=== PATIENT | female | born 1960 | race Caucasian/White ===

== ENCOUNTER 2021-08-25 14:15 | Emergency (ER) | payer OTHER, SELFPAY ==
--- NOTE | ~2021-08-25 | XR_ITS ---
EXAMINATION: XR chest 2V 08/25/2021 15:30 INDICATION: Cough with wheezing PROCEDURE: 2 view chest COMPARISON: No prior studies for comparison. FINDINGS: The lungs are clear. The cardiomediastinal silhouette is within normal limits. There are no pleural effusions. There is no pneumothorax suspected. IMPRESSION: 1: NO ACUTE CARDIOPULMONARY DISEASE. Reviewed, dictated and finalized at location A. L
[2021-08-25 14:29] VITALS: BP 128/66; PULSE 97; RESP 20; TEMP 36.9; O2SAT 100
--- NOTE | 2021-08-25 15:25 | ED.URI ---
HPI - URI/Sore Throat General Chief Complaint: Upper Respiratory Infection Stated Complaint: Fever/Cough/Chest Congestion Time Seen by Provider: 08/25/21 15:16 Source: patient and RN notes reviewed Mode of arrival: ambulatory Limitations: no limitations History of Present Illness HPI Narrative: Patient presents today with a 3-day history of cough, congestion, rhinorrhea, temperature up to 99.1. Denies shortness of breath, nausea, vomiting, diarrhea, or any additional symptoms. She has been taking Mucinex without relief. Denies history of asthma or COPD. MD elicited complaint: cough Related Data Home Medications Medication Instructions Recorded Confirmed allopurinol 100 mg PO DAILY 08/25/21 08/25/21 amlodipine 5 mg PO DAILY 08/25/21 08/25/21 cyclobenzaprine 10 mg PO TID PRN 08/25/21 08/25/21 duloxetine 60 mg PO DAILY 08/25/21 08/25/21 famotidine 20 mg PO BID 08/25/21 08/25/21 metformin 500 mg PO DAILY 08/25/21 08/25/21 montelukast 10 mg PO DAILY 08/25/21 08/25/21 rosuvastatin 20 mg PO DAILY 08/25/21 08/25/21 tramadol 50 mg PO Q4H PRN 08/25/21 08/25/21 Allergies Allergy/AdvReac Type Severity Reaction Status Date / Time Sulfa (Sulfonamide Allergy Nausea and Verified 08/25/21 14:39 Antibiotics) Vomiting tetracycline Allergy Nausea Verified 08/25/21 14:39 amoxicillin [From Augmentin] AdvReac Nausea Verified 08/25/21 14:39 clavulanic acid AdvReac Nausea Verified 08/25/21 14:39 [From Augmentin] doxycycline AdvReac Nausea Verified 08/25/21 14:39 erythromycin base AdvReac Nausea Verified 08/25/21 14:46 Review of Systems Review of Systems: CONSTITUTIONAL: Denies body aches, chills, or sweats.+ Fever EYES: Denies visual changes, redness, or discharge. ENT: Denies sore throat, or otalgia. + Congestion, rhinorrhea CARDIOVASCULAR: Denies chest pain, palpitations, or edema. RESPIRATORY: Denies dyspnea. + Cough GASTROINTESTINAL: Denies abdominal pain, nausea, vomiting, or diarrhea. GENITOURINARY: Denies dysuria or hematuria. SKIN: Denies rash, itching, or wounds. MUSCULOSKELETAL: Denies back pain, joint pain, or myalgia. NEUROLOGIC: Denies headache, numbness, tingling, or weakness. PSYCH: Denies depression or anxiety. 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 Please see nursing chart for further information. There is no relevant family history pertinent to the presenting complaint Exam Narrative: GENERAL: Well-appearing, well-nourished, and in no acute distress. HEAD: Normocephalic, atraumatic. EYES: EOMI. No redness or drainage. Conjunctivae normal. ENT: Mucous membranes pink and moist. Nares clear. No rhinorrhea. TMs normal bilaterally. Throat mildly erythematous. Uvula midline. NECK: Normal AROM. Supple. No lymphadenopathy. CHEST: No respiratory distress. Lungs are tight and diminished at the bilateral bases. Slight expiratory wheezing throughout. HEART: Regular rate and rhythm. No murmur appreciated. Normal peripheral pulses. EXTREMITIES: Normal range of motion. No edema. SKIN: Warm, dry, no rash. Capillary refill normal. Normal skin turgor. NEURO: No focal deficits. Alert and oriented x3. Gait steady. PSYCH: Normal affect. No signs of depression or anxiety. Course Course Emergency Course: Patient did not tolerate the nasal rapid COVID-19 swab. 1603- Patient's aeration has significantly increased after Duoneb. COVID PCR pending. Will treat with albuterol and prednisone. Vital Signs Vital signs: Vital Signs Temperature 98.4 F 08/25/21 14:29 Pulse Rate 97 08/25/21 14:29 Respiratory Rate 20 08/25/21 14:29 Blood Pressure 128/66 08/25/21 14:29
[2021-08-25] MEDS: IPRATROPIUM BR 0.02% INH SOLN 0.5 MG/2.5 ML VIAL INHALATION (15:31)
[2021-08-25] MEDS: ALBUTEROL SULFATE NEB 2.5 MG/3 ML INH INHALATION (15:31)
[2021-08-26 19:18] LABS: SARS-CoV-2 RNA PCR Negative
== END 2021-08-25 16:12 | disposition home or self-care (01) ==
PROVIDERS: Emergency Provider Nurse Practitioner
DX: J40 Bronchitis, not specified as acute or chronic (principal); J06.9 Acute upper respiratory infection, unspecified; N18.30 Chronic kidney disease, stage 3 unspecified; Z20.822 Contact with and (suspected) exposure to COVID-19
CPT/HCPCS: 71046; 87804; 94640; 99213; C9803; G0463; U0003; U0005